=== PATIENT | female | born 1995 | race African-American/Black ===

== ENCOUNTER 2020-03-01 13:01 | Outpatient (CLI) | payer OTHER, MEDICAID, SELFPAY | END 2020-03-01 22:13 | disposition home or self-care (01) | LOC: MLB 13:01 | PROVIDERS: ATTEND Obstetrics & Gynecology | DX: O00.01 Abdominal pregnancy with intrauterine pregnancy (principal); O42.90 Premature rupture of membranes, unspecified as to length of time between rupture and onset of labor, unspecified weeks of gestation; O98.313 Other infections with a predominantly sexual mode of transmission complicating pregnancy, third trimester; Z11.59 Encounter for screening for other viral diseases; Z3A.39 39 weeks gestation of pregnancy | CPT/HCPCS: U0003-CS ==

== ENCOUNTER 2023-12-24 08:27 | Emergency (ER) | payer MEDICAID, OTHER ==
[~2023-12-24] VITALS: Ht 157.5 cm; Wt 87.1 kg
[2023-12-24 08:40] VITALS: BP 116/79; PULSE 82; RESP 18; TEMP 98.1; O2SAT 96
[2023-12-24] MEDS ORDERED: SUD30 PO (08:50)
[2023-12-24] MEDS ORDERED: KETO5DRO68 OP (08:50)
[2023-12-24 08:53] VITALS: BP 116/79; PULSE 82; RESP 18; TEMP 98.1; O2SAT 96
== END 2023-12-24 08:53 | disposition home or self-care (01) ==
LOC: MED 08:27
DX: H10.13 Acute atopic conjunctivitis, bilateral (principal); J30.2 Other seasonal allergic rhinitis; Z79.899 Other long term (current) drug therapy
CPT/HCPCS: 99282